=== PATIENT | female | born 1990 | race Caucasian/White ===

== ENCOUNTER 2024-07-01 08:59 | Inpatient (IN) | payer OTHER, SELFPAY ==
[2024-07-01] VITALS (39 sets, daily range): BP systolic 102–128; BP diastolic 53–88; PULSE 72–110; TEMP 36.6; O2SAT 97–100; BMI 28.8
[2024-07-01 09:47] LABS: Basophils Absolute Auto 0.1 K/mm3 (0.0-0.1); Basophils Percent Auto 0.5 % (0.2-1.2); Eosinophils Absolute Auto 0.1 K/mm3 (0-0.3); Eosinophils Percent Auto 0.7 % (0-4.4); Hematocrit 36.1 % (37.0-47.0); Hemoglobin 11.7 g/dL (12.0-15.0); Immature Granulocyte Absolute 0.08 K/mm3 (0.00-0.031); Immature Granulocyte Percent A 0.6 % (0-0.5); Lymphocytes Absolute Auto 2.01 K/mm3 (0.9-3.2); Lymphocytes Percent Auto 16.3 % (18.3-44.2); Mean Corpuscular HGB Conc 32.4 g/dl (32-36); Mean Corpuscular Hemoglobin 28.1 pg (26-34); Mean Corpuscular Volume 86.8 fl (80-100); Mean Platelet Volume 9.7 fl (7.4-10.4); Monocytes Absolute Auto 0.9 K/mm3 (0.1-0.6); Monocytes Percent Auto 7.1 % (2.6-8.5); Neutrophils Absolute Auto 9.2 K/mm3 (1.3-6.7); Neutrophils Percent Auto 74.8 % (45.5-73.1); Platelet Count Result 328 k/mm3 (150-375); Red Blood Count 4.16 M/mm3 (4.2-5.4); Red Cell Distribution Width 13.8 % (11.5-14.5); White Blood Count 12.4 K/mm3 (4.5-10.0)
--- NOTE | 2024-07-01 09:58 | LDADM ---
This patient, Makeda Johnson, was admitted to Labor/Delivery/Recovery 104 on 07/01/24 at 08:59. Plans for labor, pain management and were discussed with patient. Patient/family oriented to hospital policies and general routines including ID bracelet, bed and alarms, visiting hours, pain management, procedures, bathroom and other care routines, personal items, smoking policy, room service/diet and guest tray routines, security routines, and visiting hours. Patient/Family are encouraged to report perceived risks to care and to ask questions if they do not understand what they are told or what they should do. See OBIX for further documentation.
[2024-07-01] MEDS: miSOPROStol 25 MCG TABLET 50 MCG BUCCAL ×3 (10:28→20:14)
[2024-07-01 10:36] LABS: HIV 1/2 Ab P24 Ag Result Negative (Negative)
[2024-07-01 10:38] LABS: Syphilis IgG/IgM Antibody Negative (Negative)
--- NOTE | 2024-07-01 14:06 | PM.IMHP ---
H&P: HPI History of Present Illness Date/Time: 07/01/24 14:06 Chief Complaint: elective induction of labor Narrative: Patient is a 33 year old who presents for elective induction of labor. Her has been overall uncomplicated. She denies strong contractions, leakage of fluid or vaginal bleeding. Denies abdominal pain, nausea, vomiting, dysuria, fevers or chills. Review of Systems Review of Systems: All systems reviewed & are unremarkable except as noted in HPI and below PMFSH Family History Family History Grandparent Acute myocardial infarction Cerebrovascular accident Chronic obstructive pulmonary disease Hypertension Other Acute myocardial infarction Father Diabetes mellitus Social History Social History Smoking status: Light tobacco smoker Tobacco type: cigarettes Second hand tobacco smoke exposure: Yes Substance use: former Do You Feel Safe in your Home?: Yes Lack of Transportation: No Lack of Food: Never True Current Housing: I Have Housing Concerned About Future Housing: No Difficulty Paying Gas/Electric Bills: No Difficulty Paying for Meds: No Currently Unemployed: No Education: High School Diploma/GED Difficulty w/ Childcare or Family Care: No Spiritual care concerns: No Meds Home Medications and Allergies Home Medications ?Medication ?Instructions ?Recorded ?Confirmed ?Type prenat.vits,israel,[id number] 1 tablet PO DAILY 07/01/24 07/01/24 History Allergies Allergy/AdvReac Type Severity Reaction Status Date / Time No Known Allergies Allergy Verified 07/01/24 09:47 Vital Signs Vital Signs - 24 hr 07/01/24 09:34 07/01/24 09:53 07/01/24 10:13 Temperature 97.8 F Pulse Rate 110 H Blood Pressure 121/88 Oxygen Delivery Room Air 07/01/24 10:17 07/01/24 10:30 07/01/24 11:00 Temperature Pulse Rate 110 H 98 100 Blood Pressure 121/88 120/81 115/81 Oxygen Delivery Room Air 07/01/24 11:31 07/01/24 12:01 07/01/24 12:31 Temperature Pulse Rate 80 91 79 Blood Pressure 113/60 114/60 108/53 L Oxygen Delivery 07/01/24 12:56 07/01/24 13:00 07/01/24 14:01 Temperature 97.9 F Pulse Rate 96 82 Blood Pressure 115/73 110/69 Oxygen Delivery Exam Const: General: comfortable and no acute distress HENMT: Mouth: Yes moist mucous membranes Resp: Effort & Inspection: normal respiratory effort Cardio: Rate: regular rate Skin: General skin exam: normal color Extrem: General: normal to inspection Psych: Mental Status: mental status grossly normal H&P: Results Labs Labs: Short CBC 07/01/24 Range/Units 09:37 WBC 12.4 H (4.5-10.0) K/mm3 Hgb 11.7 L (12.0-15.0) g/dL Hct 36.1 L (37.0-47.0) % Plt Count 328 (150-375) k/mm3 Assessment and Plan Assessment and plan (1) Encounter for elective induction of labor: Code(s): Z34.90 - Encounter for supervision of normal , unspecified, unspecified trimester Status: Acute Assessment and Plan: - uncomplicated - FHR category I - cytotec per protocol - GBS neg
[2024-07-01] MEDS: LACTATED RINGERS 500 ML 999 ML IV CONT (21:16)
[2024-07-02] VITALS (207 sets, daily range): BP systolic 55–160; BP diastolic 42–109; PULSE 42–296; RESP 18; TEMP 36.3–37.2; O2SAT 68–100
[2024-07-02] MEDS: OXYTOCIN 30 UNITS/NS 500 ML 30 UNITS/500 ML BAG 6 UNITS IV CONT (00:40)
[2024-07-02] MEDS: OXYTOCIN 30 UNITS/NS 500 ML 30 UNITS/500 ML BAG IV CONT (01:08)
[2024-07-02] MEDS: LACTATED RINGERS 1,000 ML 125 ML IV CONT ×2 (01:08→04:56)
--- NOTE | 2024-07-02 01:34 | WPDANESEPP ---
Anes - Eval Pre Procedure Procedure: Labor Epidural Date/Time: 07/02/24 01:34 Surgeon: Benson Preop Diagnosis: Labor Pain Pre Op Diagnosis: iol Patient Data Age: 33 Gender: F Height: 1.7 m Weight: 83.5 kg Last Vital Signs Temp 36.6 C 07/01/24 18:29 Pulse 86 07/02/24 01:31 BP 139/85 07/02/24 01:31 Pulse Ox 100 07/01/24 21:57 O2 Del Method Room Air 07/01/24 18:30 Allergies Allergy/AdvReac Type Severity Reaction Status Date / Time No Known Allergies Allergy Verified 07/01/24 09:47 Home Medications ?Medication ?Instructions ?Recorded ?Confirmed ?Type prenat.vits,israel,[id number] 1 tablet PO DAILY 07/01/24 07/01/24 History Laboratory Tests 07/01/24 09:37 WBC 12.4 H K/mm3 (4.5-10.0) RBC 4.16 L M/mm3 (4.2-5.4) Hgb 11.7 L g/dL (12.0-15.0) Hct 36.1 L % (37.0-47.0) MCV 86.8 fl (80-100) MCH 28.1 pg (26-34) MCHC 32.4 g/dl (32-36) RDW 13.8 % (11.5-14.5) Plt Count 328 k/mm3 (150-375) MPV 9.7 fl (7.4-10.4) Immature Gran % (Auto) 0.6 H % (0-0.5) Neut % (Auto) 74.8 H % (45.5-73.1) Lymph % (Auto) 16.3 L % (18.3-44.2) Morrow % (Auto) 7.1 % (2.6-8.5) Eos % (Auto) 0.7 % (0-4.4) Baso % (Auto) 0.5 % (0.2-1.2) Lymph # (Auto) 2.01 K/mm3 (0.9-3.2) Morrow # (Auto) 0.9 H K/mm3 (0.1-0.6) Eos # (Auto) 0.1 K/mm3 (0-0.3) Baso # (Auto) 0.1 K/mm3 (0.0-0.1) Abs Immat Gran (auto) 0.08 H K/mm3 (0.00-0.031) Absolute Neuts (auto) 9.2 H K/mm3 (1.3-6.7) Absolute Nucleated RBC 0.000 K/mm3 (0.0-0.012) Nucleated RBC % 0.0 % (0.0-0.2) Syphilis IgG/IgM Ab Negative (Negative) HIV 1&2 Ab/P24 Ag 4thGn Negative (Negative) Blood Type A Positive Antibody Screen Negative Patient hx anesthesia problems: none Family hx anesthesia problems: none Results Review: All pre-operative results and documents have been reviewed as part of the pre-operative evaluation. [facility] Family History Family History Grandparent Acute myocardial infarction Cerebrovascular accident Chronic obstructive pulmonary disease Hypertension Other Acute myocardial infarction Father Diabetes mellitus Social History Social History Smoking status: Light tobacco smoker Tobacco type: cigarettes Second hand tobacco smoke exposure: Yes Substance use: former Do You Feel Safe in your Home?: Yes Lack of Transportation: No Lack of Food: Never True Current Housing: I Have Housing Concerned About Future Housing: No Difficulty Paying Gas/Electric Bills: No Difficulty Paying for Meds: No Currently Unemployed: No Education: High School Diploma/GED Difficulty w/ Childcare or Family Care: No Spiritual care concerns: No Exam Day of Procedure 07/02/24 01:34 Patient weight: normal Heart: regular rate and rhythm Lungs: normal air movement Airway: Mallampati scale class II Neurological: alert and oriented
[2024-07-02] MEDS: TERBUTALINE SULFATE 1 MG/ML VIAL 0.25 MG SUB-Q (02:51)
[2024-07-02] MEDS: SODIUM CHLORIDE 0.9% IV 300 ML 600 ML I-UTERINE (03:28)
--- NOTE | 2024-07-02 03:57 | PM.OBPNLAB ---
Pain Control Date/time seen: 07/02/24 03:57 Pain control: epidural Pelvic Exam Dilation (cm): 5 Effacement (%): 90 station: -2 Amniotic membrane status: Ruptured (clear fluid) Contractions Monitor mode: Internal Contraction frequency: 2 Contraction pattern: Irregular Status status: Category ll Comments: recurrent variable decels, prolonged decel that resolves with hands and knees Assessment and Plan Pitocin rate (mU/min): 0 Assessment: induction ongoing Comments: terb given for prolonged decel, decel recovers with hands and knees however patient not tolerating other positioning. Amnioinfusion running. Discussed that if baby does not tolerate position change and contractions, would recommend primary c section for intolerance of labor. Risks and benefits of primary c section discussed with patient who voices understanding and is agreeable to proceeding with c section if necessary.
[2024-07-02] MEDS: SODIUM CHLORIDE 0.9% IV 1,000 ML 150 ML I-UTERINE (04:11)
--- NOTE | 2024-07-02 10:14 | PM.OBPNLAB ---
Pain Control Date/time seen: 07/02/24 10:14 Pain control: epidural Pelvic Exam Dilation (cm): 10 Effacement (%): 100 station: -1 Amniotic membrane status: Ruptured (clear fluid) Contractions Monitor mode: Internal Status status: Category ll Comments: intermittent late and variable decels with pushing Assessment and Plan Pitocin rate (mU/min): 2 Assessment: active labor Plan: continuous present management Comments: pushing well
--- NOTE | 2024-07-02 11:47 | PM.OBPRVD ---
OB - Vaginal Delivery Note Procedure Delivery date: 07/02/24 Events: Elective Induction of Labor Intrapartal Events: Ineffetive Pushing/Maternal Exhaustion and Non-Reassuring Status Induction method: Per Misoprostol Protocol Delivery augmentation: Rupture of Membranes and Pitocin Delivery monitor: External FHT and Internal Uterine Route of delivery: vacuum extraction (2 pop offs, 4 pulls) Indication for instrumentation: nonreassuring FHR tracing Episiotomy description: None Laceration Description: Perineal - 2nd Degree Delivery repair: vicryl Specimen: No Quantitative Blood Loss (ml): 200 Anesthesia type: Epidural Disposition: Floor Complications: No immediate complications Narrative: See H&P and notes for details on patient's admission and labor. She progressed to complete cervical dilation and at the appropriate time began pushing. Due to recurrent late decelerations with pushing and maternal exhaustion, the patient was consented and agreed to [place]wi vacuum placement. With adequate expulsive efforts by the mother and assistance from the vacuum, the baby's head was delivered without difficulty. Nuchal cord was present x2 and was easily reduced. The baby's left shoulder was anterior and delivered under the pubic symphysis without difficulty. The posterior shoulder and the rest of the baby delivered without difficulty. The umbilical cord was doubly clamped and cut after 30 seconds of delayed cord clamping. Care of the infant was then assumed by the nursing staff. [place] Baby Date of : 07/02/24 Gestational Age by Date: 40 Infant gender: Male Weight (pounds): 7 Weight (ounces): 15 presentation: vertex position: Right Occiput Anterior Placenta delivery description: Expressed Cord Vessel Description: 3 Vessels, Nuchal Cord (x2) and Reduced score one minute: 8 score five minutes: 9
[2024-07-02] MEDS: OXYTOCIN 30 UNITS/NS 500 ML 30 UNITS/500 ML BAG 125 UNITS IV CONT (12:05)
[2024-07-02] MEDS: IBUPROFEN 600 MG TABLET PO (13:47)
[2024-07-02] MEDS: WITCH HAZEL 40 PADS 1 PAD TOPICAL (13:49)
[2024-07-02] MEDS: BENZOCAINE 20% AER SPR (*SP) 56 GM CAN 1 SPRAY TOPICAL (13:49)
--- NOTE | 2024-07-02 18:50 | OBPPTRN ---
1610-Patient transferred to post room #289 via wheelchair. Support person present. Oriented to unit, room, information board, rooming in, admission packet and security measures. Patient verbalizes understanding.
--- NOTE | 2024-07-02 19:51 | PC.NURSE ---
1320 Introductions were made, then consulted with patient to assess needs related to . Mother led the conversation with her?plans to feed?her and the?experience so far. Encouraged understanding of the benefits of skin to skin (demonstrating unwrapping infant and placing upright on her chest), stimulating with massage touch, changing positions to encourage wakefulness, how to watch for early feeding cues, responsive feeding, feeding on demand (aiming for 8-12 times in 24 hours, about every 2-3 hours), milk production, building/maintaining a milk supply, duration of feeding, signs of adequate intake/output and how to record on the feeding sheet. Mother works well with her with encouragement and education. Reviewed positioning and ear, shoulder, hip alignment, supporting the breast to facilitate a deep latch, asymmetrical latch (off-center), leading with the chin with a big, open, wide gape and body close to mother. Reny RN had worked with baby and he was unable to maintain a latch, mother's nipples flatish and breasts are firm, RN pulled a nipple shield and infant latched optimally to the [right] breast in [cross cradle] position. RN reviewed good handwashing, cleaning the nipple shield and the appropriate way to apply and use as a tool. Discussed with mom the nipple shield precautions, possible complications associated with the risks and benefits. Reviewed practicing with a nipple shield, then without and how to protect the milk supply and production. Mom voiced understanding of the importance of hand expression, nipple stimulation and initiating a pumping schedule if infant continues to nurse with the shield. Education also given to the mother of how to visualize the suckling (with good rocking jaw motion), swallows (dropping of the lower jaw) and how to listen for drinking at the breast (the ka sound). Infant was [able/unable] to maintain latch without pain to mother protecting the nipple with optimal positioning and latching. Reviewed comfort measures of healing with a warm, wet washcloth to rinse breast, then leave open to air-dry, good handwashing when or touching the breast/nipples to prevent infection. Mother voiced understanding of skin to skin, stimulating with massage touch, responsive feedings, hand expressed colostrum, talking to infant to encourage if it has been 2 -2.5 hours since the start of the last , to call if infant does not latch, or if there is discomfort with . Resources used for education were facilitated with the [visual educational handouts/ tool/mom and baby guide], Inpatient/outpatient resources provided with business card, feeding sheet, name written on the communication board, and the mom/baby guide. Parents voiced understanding of information, demonstrated learning and will call if there is a request for assistance. Reported to the Primary RN. 1810 Mother called out for assistance, she had used the nipple shield to breastfeed baby for the last three feedings and would like to be shown how to use her Medela breast pump. Instructions given on cleaning, care, usage, that there should be no pain, pumping schedule for milk production, collection, and storage of human milk. Patient was assessed for correct placement, flange size (both nipples measured 20mm and she is using the size 24 flange), to pump for comfort and nipple stretching/stimulation for adequate milk production every 3 hours after if using the nipples shield (8 times in 24 hours) 1-2 times at night. Parents are encouraged to record the pumping schedule on the feeding sheet.?Mother voiced understanding of the education shared along with mom/baby guide and the pump measurement, flange fit handout for additional resource information. Reported to the Primary RN.
[2024-07-03 05:00] VITALS: BP 118/69; PULSE 95; RESP 16; TEMP 37.2
[2024-07-03] MEDS: IBUPROFEN 600 MG TABLET PO ×3 (05:21→23:42)
[2024-07-03 05:50] LABS: Hematocrit 24.7 % (37.0-47.0)
[2024-07-03 08:15] VITALS: BP 114/72; PULSE 85; RESP 20; TEMP 36.3; O2SAT 96
[2024-07-03] MEDS: MULTIVIT/MIN/PREN/FOL AC/IRON TABLET 1 TAB PO (08:49)
[2024-07-03] MEDS: ACETAMINOPHEN 325 MG TABLET 650 MG PO (08:49)
[2024-07-03] MEDS: POLYSACCHARIDE IRON COMPLEX 150 MG CAPSULE PO ×2 (08:49→16:27)
[2024-07-03] MEDS: TETANUS,DIPHTHERIA,AC PERTUSSIS ADULT (0.5 ML) BOOSTRIX IM (08:52)
--- NOTE | 2024-07-03 09:53 | WPDANLDPN2 ---
Anes-Prog Note L&D Date/Time: 07/03/24 09:53 Comfortable throughout: labor and delivery Neuraxial method: epidural Epidural/Spinal procedure site: clean & non-tender Neuro status: Neuro function grossly intact. Cardiovascular status: normal Respiratory status: normal Airway patency: baseline Mental status: baseline Post-Op hydration status: normal Vital Signs: Last Vital Signs Temp 99 F 07/03/24 05:00 Pulse 95 07/03/24 05:00 Resp 16 07/03/24 05:00 BP 118/69 07/03/24 05:00 Pulse Ox 99 07/02/24 17:00 O2 Del Method Room Air 07/02/24 19:50 Pain score (VAS): 0 Post-procedural complaints: none Patient feedback: Patient satisfied with anesthetic care.
--- NOTE | 2024-07-03 11:26 | PM.OBPNVD ---
OB - PN: Subj Subjective Date/time seen: 07/03/24 11:26 Interval history: PPD#1 Doing well, some soreness Voiding without issue Tolerating general diet , working with OB - PN: Obj Data Labs 07/03/24 05:15 Labs: Laboratory Results - last 24 hr 07/03/24 05:15 Hgb 8.0 L D Hct 24.7 L OB - PN A/P Assessment and Plan (1) Vacuum-assisted vaginal delivery: Code(s): Z37.9 - Outcome of delivery, unspecified Status: Acute Plan day: 1 Plan: routine care Time Spent With Patient Time: Total time spent is greater than 50% in coordination of care (as documented) at patient's floor/unit and/or counseling patient: Review of Systems Review of Systems: All systems reviewed & are unremarkable except as noted in HPI and below Exam Const: General: comfortable and no acute distress Orientation/consciousness: patient oriented x3 Resp: Effort & Inspection: normal respiratory effort
--- NOTE | 2024-07-03 16:23 | PC.NURSE ---
9639 Introductions were re-made, then consulted with patient to assess needs related to . Discussed with mother her?plans to feed?her infant and the?experience so far. Per mother last night baby had one successful with the nipple shield and two other attempts and baby took a formula bottle, she did use her breast pump last night and pumped 2mls. that she saved. With this last feeding while RN in room, mother latched baby with nipple shield to her left breast in football position and baby was able to maintain latch for 15 min, mother requested the pumped breast milk and this RN finger/syringe fed baby 2 mls. Resources provided for inpatient and outpatient services with the feeding sheet, mom/baby guide and name written on the communication board. Mother voiced understanding of information and will call if there is a request for assistance. Reported to the Primary RN. 1010 Mother called out for assistance, she had been trying to latch baby with the shield to her right breast in cross cradle for the last 5 mins and baby was unable to maintain latch. Baby was upset, mother tried to comfort and calm him, RN checked diaper and he had his first void after his circumcision. RN showed parents circumcision care and then mother attempted again with the shield, baby would not latch. Mother had pumped 5mls and fed that to baby with a bottle. RN talked with parents about the 15-15-15 feeding plan and they were ok with that plan. Father then fed the baby a formula bottle. Reported to the Primary RN.
[2024-07-03] MEDS: DOCUSATE SODIUM 100 MG CAPSULE PO (16:27)
[2024-07-03 20:20] VITALS: BP 100/59; PULSE 85; RESP 18; TEMP 36.6; O2SAT 100
[2024-07-04 08:15] VITALS: BP 114/72; PULSE 92; RESP 16; TEMP 36.4; O2SAT 99
[2024-07-04] MEDS: MEASLES,MUMPS,RUBELLA VACCINE 0.5 ML VIAL SUB-Q (08:29)
[2024-07-04] MEDS: POLYSACCHARIDE IRON COMPLEX 150 MG CAPSULE PO (08:30)
[2024-07-04] MEDS: MULTIVIT/MIN/PREN/FOL AC/IRON TABLET 1 TAB PO (08:31)
[2024-07-04] MEDS: DOCUSATE SODIUM 100 MG CAPSULE PO (08:31)
[2024-07-04] MEDS: IBUPROFEN 600 MG TABLET PO (08:31)
--- NOTE | 2024-07-04 10:12 | PM.OBPNVD ---
OB - PN: Subj Subjective Date/time seen: 07/04/24 10:12 Interval history: PPD#2 Doing well, pain controlled Voiding without issue Tolerating general diet , working on latching; discussed hand expression and paced bottle feeding Ready for discharge today OB - PN: Obj Data Labs 07/03/24 05:15 OB - PN A/P Assessment and Plan (1) Vacuum-assisted vaginal delivery: Code(s): Z37.9 - Outcome of delivery, unspecified Status: Acute Plan day: 2 Plan: routine care and discharge home Time Spent With Patient Time: Total time spent is greater than 50% in coordination of care (as documented) at patient's floor/unit and/or counseling patient: Review of Systems Review of Systems: All systems reviewed & are unremarkable except as noted in HPI and below Exam Const: General: comfortable and no acute distress Orientation/consciousness: patient oriented x3 Resp: Effort & Inspection: normal respiratory effort
--- NOTE | 2024-07-04 10:18 | PM.OBDSVD ---
DS: Admitting Diagnosis Discharge Date 07/04/24 Admitting Diagnosis elective induction of labor DS: Discharge Diagnosis Discharge Diagnosis (1) Vacuum-assisted vaginal delivery: Code(s): Z37.9 - Outcome of delivery, unspecified Status: Acute OB - DS: Summary OB Procedures : None OB Procedures Intrapartum: Spontaneous Vag Delivery and Vacuum extraction OB Procedures: : None Peripartum Data Laceration Description: Perineal - 2nd Degree Episiotomy description: None Time Spent with Patient Time attestation: Total time spent providing and/or coordinating discharge services: Discharge Plan Discharge Attending physician on discharge: Felipe Moe Discharging Clinician: Felipe Moe Patient Disposition: Home, Self-Care Activity: may shower, as tolerated and pelvic rest Diet: as tolerated Patient Instructions: Antibiotic Form Patient Language: Hungarian Stand Alone Forms: General Discharge Information Follow-up/Referrals: Gael Knowles MD [Physician] - 5 Weeks Discharge Medications: New ibuprofen 600 mg Tablet 600 mg PO Q6H PRN (Reason: Cramping) Qty: 30 0RF docusate sodium 100 mg Capsule 100 mg PO BID PRN (Reason: Constipation) Qty: 60 0RF Continued prenat.vits,israel,[id number] Tablet 1 tablet PO DAILY Date of admission: 07/01/24 08:59 Primary Care Provider: LuisSheng Admitting Provider: Gael Knowles Attending physician on admission: Gael Knowles Condition: Stable
--- NOTE | 2024-07-04 12:45 | PC.NURSE ---
Patient instructed on viewing the discharge video Mother & Baby Care, The First Two Weeks . Patient was given the opportunity and encouraged to ask questions. Patient verbalized understanding of information shared and has been given the mother/baby guide for home reference.
[2024-07-04] MEDS: ACETAMINOPHEN 325 MG TABLET 650 MG PO (12:53)
[2024-07-07 09:24] VITALS: BP 128/75; PULSE 80; RESP 20; TEMP 36.4; O2SAT 98
== END 2024-07-04 14:37 | disposition home or self-care (01) | DRG 807 ==
LOC: ANHLDR 09:15 → ANHOB2 07-04 10:16 → ANHLDR 07-06 13:53 → ANHOB2 07-06 13:53
PROVIDERS: Admitting Provider Obstetrics & Gynecology; PCP Family Medicine; Visit Provider Obstetrics & Gynecology
DX: O69.81X0 Labor and delivery complicated by cord around neck, without compression, not applicable or unspecified (principal); Z37.0 Single live birth; Z3A.40 40 weeks gestation of pregnancy; O70.1 Second degree perineal laceration during delivery; O36.8330 Maternal care for abnormalities of the fetal heart rate or rhythm, third trimester, not applicable or unspecified; O75.81 Maternal exhaustion complicating labor and delivery
CPT/HCPCS: 36415; 85014; 85018; 85025; 86593; 86703; 86850; 86900; 86901; 90710; 90715; A9270; G0432; J2590; J2795; J3105; J7030; J7120